=== PATIENT | male | born 1980 | race Caucasian/White ===

== ENCOUNTER 2016-07-08 08:49 | Emergency (ER) | payer SELFPAY ==
[~2016-07-08] VITALS: Ht 193 cm; Wt 113.6 kg
[2016-07-08 08:56] VITALS: BP 135/94; PULSE 86; RESP 24; O2SAT 100
[2016-07-08] MEDS ORDERED: 0.9% Sodium Chloride 1,000 ML IV ONE (09:00)
--- NOTE | 2016-07-08 09:02 | ED.REPORT ---
HPI-Psychiatric Illness Date of Service Jul 08, 2016 ED Provider: Jakob Moreno MD Patient is a 35 year old male with a history of bipolar and substance abuse presents to the ED via EMS complaining of a panic attack. Associated symptoms include hand and foot numbness and tingling, SOB, scattered thinking, and both auditory and visual hallucinations. Patient has been sober for 5 years but took meth approximately 5 days ago and says that he has not been the same since. He reports that he has never had hallucinations before. He denies homicidal ideations, suicidal ideations, or any other symptoms. He was receiving psychiatric care but stopped because he didn't want to be medicated but has been self medicating since. He used to take Lexapro but is no longer on any regular medications. He was in town to take care of a previous warrant. He reports being jailed and possibly Sunday. Patient was going to a laundry facility to clean clothes that he vomited on during an earlier panic attack when he started feeling nervous. He stopped to get marijuana to help with his nervousness but denies actually smoking the marijuana. He became short of breath and drove back to the hotel. He had tried talking himself down but was unable to so he called his mother. He noticed his symptoms worsening so he called EMS. Nursing Notes Stated Complaint: PANIC ATTACK Chief Complaint: Psychiatric Complaint Nursing Notes Reviewed: Yes ([employer], meds not reconciled) Allergies: Coded Allergies: Sulfa (Sulfonamide Antibiotics) (Verified Allergy, Unknown, 07/08/16) General Time Seen by MD: 08:59 Chief Complaint Anxious Hx Obtained From: Patient, EMS Arrived By: Ambulance Risk-Psychiatric Illness Suicide Risk Stratification Suicide Risk Factors - Adult: : Substance abuseNo: Alcohol use RF Statements: Risk factors reviewed Past Medical History Past Medical History ho bipolar/depression (off meds for years) Past Surgical History Knee surgery Social History Alcohol Use: Denies alcohol use Drug Use: Meth, THC Other Social History: Visiting locally Ambulatory Status Independent Review of Systems Respiratory: Reports: Shortness of breath Neurologic: Reports: Numbness (Hands and feet, tingling ) Psychiatric: Reports: Anxiety, Hallucinations, auditory, Hallucinations, visual , Denies: Homicidal ideation, Suicidal ideation Complete sys rev & neg: except as marked. Physical Exam Initial Vital Signs Vital Signs (First) Date Time Temp Pulse Resp B/P Pulse Ox O2 Delivery O2 Flow Rate FiO2 07/08/16 08:56 36.1 86 24 135/94 100 Room Air Initial VS: Reviewed, Vital signs normal Head / Eyes: Atraumatic, Normocephalic Neck: Full range of motion Respiratory: Breath sounds normal, Clear to auscultation, No respiratory distress Cardiovascular: Regular rate & rhythm, Heart sounds normal, Intact distal pulses Abdomen / GI: Soft Skin: Warm, Dry General/Constitutional: Awake, Alert, Well developed Lips dry Neurologic: Oriented X3 Psychiatric: Not homicidal, No hallucinations, Judgment/insight NL Abnormal Mood/Affect: Positive: Anxious, Pressured speech Interpretation & Diagnostics Lab Results Interpretation Result Diagram: 07/08/16 0930 07/08/16 0930 Test 07/08/16 09:30 07/08/16 10:19 White Blood Count 6.2th/mm3 (3.8-10.1) Red Blood Count 5.33mil/mm3 (4.40-5.80) Hemoglobin 15.8g/dL (13.8-17.2) Hematocrit 47.5% (41.0-50.0) Mean Corpuscular Volume 89.1fL (81-100) Mean Corpuscular Hemoglobin 29.6pg (27.0-35.0) Mean Corpuscular Hemoglobin Concent 33.3% (32.0-37.0) Red Cell Distribution Width 14.0% (12.3-15.4) Platelet Count 250bil/L (150-400) Neutrophils (%) (Auto) 48.2% (40-74) Lymphocytes (%) (Auto) 33.1% (14-46) Monocytes (%) (Auto) 15.0% (4-12) Eosinophils (%) (Auto) 3.2% (0-5) Basophils (%) (Auto) 0.3% (0-3) Sodium Level 140mEq/L (134-144) Potassium Level 3.7mEq/L (3.5-5.2) Chloride Level 100mEq/L (97-108) Carbon Dioxide Level 24mmol/L (18-29) Blood Urea Nitrogen 12mg/dL (6-20) Creatinine 0.82mg/dL (0.76-1.27) Estimat Glomerular Filtration Rate 113mL/min (>59) Glucose Level 96mg/dL (60-99) Calcium Level 9.6mg/dL (8.5-10.1) Total Bilirubin 0.9mg/dL (0.0-1.2) Aspartate Amino Transf (AST/SGOT) 32U/L (0-50) Alanine Aminotransferase (ALT/SGPT) 29U/L (0-44) Alkaline Phosphatase 60U/L (25-150) Total Protein 8.0g/dL (6.4-8.4) Albumin 4.4g/dL (3.4-5.0) Alcohol, Quantitative < 10mg/dL (0-10) Hold Urine Received (Received) Lab Results Interpretation: CBC normal CMP normal Alcohol negative U tox positive meth, positive THC Re-Eval/Medical Decision Med Decision/Clinical Course This is a 35-year-old male visiting from out of town used to live here and came back to deal with a legal issue, admits while he been sober for a long period of time, he then took methamphetamines on Sunday. Then, he has had some visual and auditory hallucinations along with increased panic and anxiety. He then has been trying use marijuana to calm down. He had a "panic attack" and started developing some numbness and tingling around the lips and both hands-he could not calm himself down-so called 911. He staying in hotel. He denies any suicidal homicidal ideation, reports she has not had any further recreational drug use beyond the methamphetamine use earlier this week and the marijuana. He denies alcohol. He has had a mild psychiatric history without previous hallucinations and was on medications but reports he did not feel that they were helping. In several years ago. He has had no hospitalizations. On exam, he appears anxious, and restless. His not tachycardic hypertensive or diaphoretic. He does appear mildly dehydrated, his lips are chapped, his tongue is dry and he requests some IV fluids as reports he is not had good intake past 24 hours. He is not suicidal, homicidal, and he does have adequate insight. His labs are normal. His tox was positive for meth and marijuana as he admitted to. He received a dose of lorazepam and is much improved on reexam. He is seen by the PUBLIC HEALTH AIDE, chemical dependency resources reviewed and provided because the patient has not decided if he is definitely returning in [place]-he thinks that he is, but is not 100% sure. He feels much improved and is being discharged back to the hotel. Routine precautions reviewed. Source of Hx: Old records, EMS Re-Evaluation/Progress : Time of Eval: 11:31 )( Re-Eval Psychiatric: No danger to self, No danger to others, No suicidal ideation, No homicidal ideation Patient Status: Condition improved Re-Evaluation/Progress Note: Rechecked patient who is no longer hallucinating. Discussed plan for discharge. Patient understands and agrees with plan. All questions addressed at this time. Differential Diagnosis: Positive: Polysubstance abuse, Substance abuse, Negative: Conversion disorder, Homicidal, Mood disorder Counseled Regarding: Diagnosis, Lab results, Need for follow-up, When/why to return to ED Discharge & Departure Impression: Primary Impression: Anxiety Additional Impression: Substance abuse )( Condition at Discharge: No danger to self, No danger to others, No suicidal ideation, No homicidal ideation Disposition: Home Discharge Condition All VS Reviewed: Yes Condition: Stable Additional Instructions: 1. Stay away from drugs. 2. If you choose to remain in town, follow up with the resources as provided by the criminal justice social worker. 3. Return if new or worsening symptoms. 4. Follow up with your regular doctor when you return home. Scribe Attestation Portions of this note were transcribed by Ben Perez. I, Dr. Moreno personally performed the history, physical exam and medical decision-making; I reviewed and confirmed the accuracy of the information in the transcribed note. Signed by: Ben Perez 07/08/16, 1133 Jakob Moreno MD Jul 08, 2016 09:02 BEN PEREZ Jul 08, 2016 09:20
[2016-07-08 09:35] LABS: BASOPHILS % (AUTO) 0.3 % (0-3); EOSINOPHILS % (AUTO) 3.2 % (0-5); Mean Corpuscular Hemoglobin 29.6 pg (27.0-35.0); Mean Corpuscular Volume 89.1 fL (81-100); NEUTROPHILS % (AUTO) 48.2 % (40-74); Platelet Count 250 bil/L (150-400)
[2016-07-08 11:49] VITALS: BP 115/86; PULSE 66; RESP 14; O2SAT 97
== END 2016-07-08 11:50 | disposition home or self-care (01) ==
LOC: EDBD 08:49 → SED 08:49
DX: F41.9 Anxiety disorder, unspecified (principal); F15.10 Other stimulant abuse, uncomplicated; F12.10 Cannabis abuse, uncomplicated; F17.200 Nicotine dependence, unspecified, uncomplicated; Z88.2 Allergy status to sulfonamides
CPT/HCPCS: 80053; 81002; 85025; 96361; 96374; 99284; G0480; J2060; J7030